=== PATIENT | female | born 1990 | race African-American/Black ===

== ENCOUNTER 2019-10-31 19:49 | Emergency (ER) | payer MEDICAID ==
[~2019-10-31] VITALS: Ht 170.2 cm; Wt 73.5 kg
[2019-11-01 01:41] VITALS: BP 111/56
[2019-11-01 02:53] LABS: CLARITY URINE CLEAR (CLEAR); COLOR URINE YELLOW (YELLOW); KETONES URINE 1+ (NEGATIVE); LEUKOCYTE ESTERASE URINE NEGATIVE (NEGATIVE); NITRITE URINE NEGATIVE (NEGATIVE); OCCULT BLOOD URINE NEGATIVE (NEGATIVE); PH URINE 6.5 (4.5-8.0); PROTEIN URINE NEGATIVE (NEGATIVE); SPECIFIC GRAVITY URINE 1.007 (1.005-1.030); UROBILINOGEN URINE 0.2 E.U./dL (0.2-1.0)
[2019-11-01] MEDS ORDERED: ALBU6.7H9 IH (11:47)
== END 2019-11-01 01:43 | disposition home or self-care (01) ==
LOC: ER 19:49
DX: R07.89 Other chest pain (principal); R06.02 Shortness of breath; D64.9 Anemia, unspecified
CPT/HCPCS: 71045; 81003; 81025; 93005; 99285

== ENCOUNTER 2019-11-01 11:39 | Emergency (ER) | payer MEDICAID ==
[~2019-11-01] VITALS: Ht 170.2 cm; Wt 75.0 kg
[2019-11-01] MEDS ORDERED: ALBU6.7H9 IH (11:47)
[2019-11-01 12:30] VITALS: BP 158/94
== END 2019-11-01 12:31 | disposition home or self-care (01) ==
LOC: ER 11:39
DX: J45.901 Unspecified asthma with (acute) exacerbation (principal)
CPT/HCPCS: 99281

== ENCOUNTER 2021-02-21 09:20 | Emergency (ER) | payer MEDICAID ==
[~2021-02-21] VITALS: Ht 170.2 cm; Wt 72.0 kg
[~2021-02-21 09:20] MED LIST: ALBU6.7H9 IH
[2021-02-21 09:23] VITALS: BP 145/96
== END 2021-02-21 10:41 | disposition home or self-care (01) ==
LOC: ER 09:20
DX: R53.1 Weakness (principal); M79.18 Myalgia, other site; D64.9 Anemia, unspecified
CPT/HCPCS: 99281